=== PATIENT | female | born 1990 | race African-American/Black ===

== ENCOUNTER 2018-12-25 15:34 | Emergency (ER) | payer OTHER ==
[~2018-12-25] VITALS: Ht 162.6 cm; Wt 99.8 kg
[2018-12-25 16:04] VITALS: BP 126/88
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
[2018-12-25] MEDS ORDERED: NAPROXEN500 M1 ORAL (16:40)
[2018-12-25] MEDS ORDERED: ROBAXIN-750750 MG PO (16:40)
[2018-12-25 16:50] VITALS: BP 126/88
== END 2018-12-25 16:50 | disposition home or self-care (01) ==
LOC: EMR 16:30
DX: M54.9 Dorsalgia, unspecified (principal); M62.830 Muscle spasm of back; V43.52XA Car driver injured in collision with other type car in traffic accident, initial encounter; Y92.411 Interstate highway as the place of occurrence of the external cause
CPT/HCPCS: 99282